=== PATIENT | male | born 1985 | race Caucasian/White ===

== ENCOUNTER → 2016-09-01 | Outpatient (CLI) | payer OTHER ==
--- NOTE | 2016-09-01 14:32 | REP ---
TRIPLE PHASE BONE SCAN OF THE ANKLES AND FEET: Following the intravenous administration of 22 mCi of technetium-99m MDP, patient's ankles and feet are imaged in the flow phase in the anterior and posterior projections. There is symmetrical blood flow bilaterally. Immediate blood pool and 2.5 hour delayed images are performed of the ankles and feet in the anterior, posterior, both lateral, and plantar projections. There is slightly increased blood pooling in the region of the left sesamoid bones. Delayed images show mild focal increased uptake in the region of the left sesamoid bones. No other significant abnormal uptake is seen. IMPRESSION: Focal increased blood pooling and delayed activity in the region of the left sesamoid bones adjacent to the left first metatarsal head. Findings may represent sesamoid fracture or sesamoiditis. Signed by Jw Sebastian MD 09/01/2016 05:57 P
== END ==
LOC: M RAD 07:44
PROVIDERS: ATTEND Physician Assistant
DX: M79.675 Pain in left toe(s) (principal)

== ENCOUNTER 2018-12-24 17:50 | Emergency (ER) | payer OTHER ==
[~2018-12-24] VITALS: Ht 175.3 cm; Wt 101.5 kg
[2018-12-24] MEDS ORDERED: NS 1,000 ML IV ONE (18:15)
[2018-12-24 18:46] LABS: BASO # 0.1 10^3/uL (0.0-0.2); BASO % 1.8 % (0.0-1.0); EOS % 0.6 % (0.0-3.0); HEMATOCRIT 47.4 % (42.0-52.0); HEMOGLOBIN 17.3 g/dl (13.5-17.5); LYMPH # 2.2 10^3/uL (1.5-5.0); MEAN CORPUSCULAR HGB CONC 36.5 g/dl (32.0-36.5); MEAN CORPUSCULAR VOLUME 90.3 fl (80.0-96.0); MONO # 0.4 10^3/uL (0.0-0.8); NEUTROPHILS # 2.7 10^3/uL (1.5-8.5); NEUTROPHILS % 49.2 % (36.0-66.0); PLATELET COUNT, AUTOMATED 208 10^3/uL (150-450); RED BLOOD COUNT 5.25 10^6/uL (4.30-6.10); WHITE BLOOD COUNT 5.4 10^3/uL (4.0-10.0)
--- NOTE | 2018-12-24 19:30 | REPVR ---
PROCEDURE INFORMATION: Exam: CT Abdomen And Pelvis Without Contrast Exam date and time: 12/24/2018 6:15 PM Clinical history: 33 years old, male; Pain; Other: Left flank; Additional info: Left flanki pain TECHNIQUE: Imaging protocol: Computed tomography of the abdomen and pelvis without contrast. Radiation optimization: All CT scans at this facility use at least one of these dose optimization techniques: automated exposure control; mA and/or kV adjustment per patient size (includes targeted exams where dose is matched to clinical indication); or iterative reconstruction. COMPARISON: No relevant prior studies available. FINDINGS: Lungs: Clear lung bases. Liver: There is severe fatty infiltration of liver. Gallbladder and bile ducts: There is opacification of the gallbladder. Pancreas: Normal. No ductal dilation. Spleen: Normal spleen. Adrenals: Normal adrenal glands. Kidneys and ureters: There is enhancement of both kidneys. There are punctate stones right and left kidney. There is no evidence of obstruction right or left ureter. Stomach and bowel: The cecum is in the right pelvis. Appendix: Normal appearing appendix. Intraperitoneal space: There is no evidence of pneumoperitoneum. There is no evidence of free fluid in the abdomen or pelvis. Vasculature: Normal sized aorta. Lymph nodes: Unremarkable. No enlarged lymph nodes. Bladder: Normal urinary bladder. Reproductive: Normal size prostate. Bones/joints: There is a grade 1 spondylolisthesis of L5 on S1 and bilateral spondylolyses. This causes severe bilateral L5 neural foramina narrowing. Soft tissues: Unremarkable. IMPRESSION: 1. Severe fatty infiltration of the liver and mild hepatomegaly. 2. Punctate stones lower pole of the right and left kidney/nonobstructive. 3. Bilateral spondylolyses and bilateral L5 neural foramina narrowing. Electronically signed by: Arnel Snow On 12/24/2018 19:30:17 PM
[2018-12-24 20:38] LABS: ALBUMIN 3.3 GM/DL (3.2-5.2); BILIRUBIN,DIRECT 0.1 MG/DL (0.0-0.2); BILIRUBIN,TOTAL 0.9 MG/DL (0.2-1.0); TOTAL PROTEIN 7.6 GM/DL (6.4-8.2)
[2018-12-24] MEDS ORDERED: KETOROLAC 30 MG/ML VIAL (J1885) IV ONE (20:45)
--- NOTE | 2018-12-24 23:01 | REPVR ---
PROCEDURE INFORMATION: Exam: US Abdomen Limited, Right Upper Quadrant Exam date and time: 12/24/2018 10:19 PM Clinical history: 33 years old, male; Abnormal findings; Abnormal lab test; Elevated liver enzymes; Additional info: Elevated enzymes, looking for stones TECHNIQUE: Imaging protocol: Real-time ultrasound of the abdomen with image documentation. Examination was focused on the right upper quadrant. COMPARISON: CT ABD PELVIS W/O CONTRAST 12/24/2018 6:46 PM FINDINGS: Liver: There is severe increased echogenicity through the liver consistent with severe fatty infiltration of the liver. Gallbladder: The gallbladder is fluid-filled and there is no evidence of gallstones. The gallbladder wall measures less than 2 mm. Common bile duct: The common bile duct measures 6 mm. Pancreas: The pancreas is obscured by bowel gas. Right kidney: No evidence of hydronephrosis. IMPRESSION: 1. No evidence of gallstones. 2. Severe fatty infiltration of the liver. Electronically signed by: Arnel Snow On 12/24/2018 23:01:03 PM
[2018-12-24 23:59] VITALS: BP 151/97
[2018-12-26 10:11] LABS: HEPATITIS A ANTIBODY IGM NEGATIVE (NEGATIVE); HEPATITIS B CORE ANTIBODY IGM NEGATIVE (NEGATIVE); HEPATITIS B SURFACE ANTIGEN NEGATIVE (NEGATIVE); HEPATITIS C VIRUS ABY INDEX 0.1 INDEX (<0.8)
== END 2018-12-25 00:10 | disposition home or self-care (01) ==
LOC: M ED 17:50
DX: K76.0 Fatty (change of) liver, not elsewhere classified (principal); N20.0 Calculus of kidney; R79.89 Other specified abnormal findings of blood chemistry; K21.9 Gastro-esophageal reflux disease without esophagitis; F17.210 Nicotine dependence, cigarettes, uncomplicated
CPT/HCPCS: 74176; 76705; 80047; 80076; 81001; 83690; 85025; 86705; 86709; 86803; 87340; 96361; 96374; 99284; J1885